=== PATIENT | female | born 1935 | race Caucasian/White ===

== ENCOUNTER 2017-10-16 13:21 | Emergency (ER) | payer MEDICARE ==
[~2017-10-16] VITALS: Ht 162.6 cm; Wt 52.2 kg
[~2017-10-16 13:21] MED LIST: ADVAIR 250-501 EACH INH; ARICEPT ODT5 MG PO; ARICEPT5 MG; ASPIR 8181 MG PO; ATENOLOL100 MG PO; CELEXA40 MG PO; CIPRO500 MG PO; CLONAZEPAM0.5 M1 PO; COLACE100 MG PO; COUMADIN2 MG PO; COUMADIN4 MG PO; CYCLOBENZAPRINE10 MG PO; CYPROHEPTADINE H4 MG PO; DIGOXIN125 MCG PO; DIVALPROEX SOD250 MG PO; FENOFIBRATE160 MG PO; FENTANYL1 EAC1 TD; FLAGYL500 MG PO; GABAPENTIN600 MG PO; IMODIUM2 MG PO; LACTULOSE10 GM/15 M PO; LASIX20 MG PO; LEVOXYL75 MCG PO; LISINOPRIL20 MG PO; LUNESTA2 MG PO; LUNESTA3 MG PO; NEXIUM40 MG PO; NORCO 10-325 T1 EACH PO; NORCO 5-325 TA1 EACH PO; NYSTATIN1 EAC1; OMEPRAZOLE20 MG PO; PAROXETINE HCL40 MG PO; PRAVASTATIN SOD40 MG PO; RESTORIL15 MG PO; TAMBOCOR100 MG PO; TYLENOL EXTRA500 MG PO; ZYRTEC10 M3 PO
[2017-10-16] MEDS ORDERED: SODIUM CHLORIDE FLUSH 10 ML SYR INJ PRN (14:15)
--- NOTE | 2017-10-16 14:56 | Diagnostic Imaging Report ---
Right shoulder - 1 view HISTORY: Pain. COMPARISON: None available. FINDINGS: The examination is limited to a single projection. Bones: Acute dislocation of the right glenohumeral joint. Evaluation for fracture is limited. No expansile lytic or sclerotic lesion. Joints: The joint spaces are well-maintained. No dislocation. Soft tissues: The soft tissues appear unremarkable. IMPRESSION: Right shoulder dislocation. Signed by: Dr. Pavan Calle M.D. on 10/16/2017 2:52 PM
--- NOTE | 2017-10-16 16:02 | Diagnostic Imaging Report ---
Right scapula - 2 views HISTORY: Pain. COMPARISON: None available. FINDINGS: Bones: No acute displaced fracture. No expansile lytic or sclerotic lesion. Joints: The joint spaces are well-maintained. No dislocation. Soft tissues: The soft tissues appear unremarkable. IMPRESSION: No acute radiographic abnormality. Limited examination. Signed by: Dr. Pavan Calle M.D. on 10/16/2017 3:59 PM
[2017-10-16 17:23] LABS: BILIRUBIN,URINE 1+ (NEGATIVE); KETONES,URINE NEGATIVE (NEGATIVE); LEUKOCYTE ESTERASE ,URINE NEGATIVE (NEGATIVE); NITRITE,URINE NEGATIVE (NEGATIVE); PROTEIN,URINE DIPSTICK NEGATIVE (NEGATIVE); URINE UROBILINOGEN 0.2 mg/dL (0.2 - 1)
[2017-10-16 17:23] LABS: BASOPHILS # (AUTO) 0.1 (0.0-0.1); BASOPHILS % 0.4 % (0.0-1.0); EOSINOPHILS # (AUTO) 0.1 (0.0-0.4); EOSINOPHILS % 0.7 % (0.0-6.0); HEMATOCRIT 42.5 % (34.2-44.1); LYMPHOCYTES # (AUTO) 3.4 (1.0-3.2); LYMPHOCYTES % 30.2 % (18.0-39.1); MEAN CORPUSCULAR HGB CONC 32.9 g/dL (31-35); MONOCYTES # (AUTO) 1.2 (0.2-0.8); MONOCYTES % 10.5 % (4.4-11.3); NEUTROPHILS # (AUTO) 6.4 (2.1-6.9); NEUTROPHILS % 56.9 % (38.7-80.0); PLATELET COUNT 278 x10e3/uL (140-360); RED BLOOD COUNT 4.67 x10e6/uL (3.6-5.1); RED CELL DISTRIBUTION WIDTH 17.6 % (11.7-14.4)
[2017-10-16 17:24] LABS: CLARITY,URINE HAZY (CLEAR); COLOR,URINE YELLOW (YELLOW)
[2017-10-16 17:33] LABS: AMORPHOUS SEDIMENT,URINE FEW (FEW); BACTERIA,URINE FEW /HPF; EPITHELIAL CELLS,URINE FEW /LPF; RBC,URINE 0-5 /HPF (0-5); WBC,URINE (MAN) 0-5 /HPF (0-5)
[2017-10-16 17:41] LABS: ALBUMIN 3.2 g/dL (3.5-5.0); ALBUMIN/GLOBULIN RATIO 0.7 (0.8-2.0); ANION GAP 18.8 mmol/L (8-16); CALCIUM 9.1 mg/dL (8.4-10.2); CREATININE, SERUM 1.72 mg/dL (0.57-1.11); POTASSIUM 3.8 mmol/L (3.5-5.1)
[2017-10-16 17:48] LABS: CREATINE KINASE MB 5.2 ng/mL (0.00-5.00); TROPONIN I 0.065 ng/mL (0-0.300)
[2017-10-16] MEDS ORDERED: SODIUM CHLORIDE 0.9% 1000ML 1,000 ML IV SCH (18:30)
== END 2017-10-16 21:00 | disposition home or self-care (01) ==
LOC: ER 13:21
DX: R53.1 Weakness (principal); M25.511 Pain in right shoulder; E86.0 Dehydration; W18.11XD Fall from or off toilet without subsequent striking against object, subsequent encounter; Y92.002 Bathroom of unspecified non-institutional (private) residence as the place of occurrence of the external cause; I10 Essential (primary) hypertension; I25.10 Atherosclerotic heart disease of native coronary artery without angina pectoris; I48.91 Unspecified atrial fibrillation; E03.9 Hypothyroidism, unspecified; K21.9 Gastro-esophageal reflux disease without esophagitis; E78.5 Hyperlipidemia, unspecified; F17.210 Nicotine dependence, cigarettes, uncomplicated
CPT/HCPCS: 36415; 73010; 73030; 80053; 81001; 82550; 82553; 84484; 85025; 87086; 93005; 99284; J7030

== ENCOUNTER 2018-02-02 12:01 | Inpatient (IN) | payer MEDICARE ==
[~2018-02-02] VITALS: Ht 162.6 cm; Wt 44.9 kg
--- OUTSIDE RECORDS SUMMARY | 2018-02-02 12:03 | XMS REPORT ---
Author Author [facility] Address Unknown Phone Unavailable Care Team Providers [employer] Physical Therapist Name Role Phone SABRINA ROJAS Unavailable Unavailable Problems This patient has no known problems. Allergies, Adverse Reactions, Alerts This patient has no known allergies or adverse reactions. Medications This patient has no known medications. Results Test Description Test Time Test Comments Text Results Atomic Results Result Comments SCAPULA RIGHT [place] [address] Patient Name: VALERIA MARK MR #: [id number] : 1935 Age/Sex: 82/F Req #: [id number] Adm Physician: Ordered by: KURTIS BETHEA Report #: [id number] Location: ER Room/Bed: Procedure: [id number] DX/SCAPULA RIGHT Exam Date: 10/16/17 Exam Time : 1540 REPORT STATUS: Signed Right scapula - 2 views HISTORY: Pain. COMPARISON: None available. FINDINGS: Bones: No acute displaced fracture. No expansile lytic or sclerotic lesion. Joints: The joint spaces are well-maintained. No dislocation. Soft tissues: The soft tissues appear unremarkable. IMPRESSION: No acute radiographic abnormality. Limited examination. Signed by: Dr. Bonifacio Burroughs M.D. on 2017 3:59 PM Dictated By: BONIFACIO BURROUGHS MD [id number] Transcribed By: MARTELL on 10/16/17 155 COPY TO: KURTIS BETHEA SHOULDER RIGHT COMPLETE [place] [address] Patient Name: VALERIA MARK MR #: [id number] : 1935 Age/Sex: 82/F Req #: [id number] Adm Physician: Ordered by: KURTIS BETHEA Report #: [id number] Location: ER Room/Bed: _ Procedure: [id number] DX/SHOULDER RIGHT COMPLETE Exam Date: 10/16/17 Exam Time: 1435 REPORT STATUS: Signed Right shoulder - 1 view HISTORY: Pain. COMPARISON: None available. FINDINGS: The examination is limited to a single projection. Bones: Acute dislocation of the right glenohumeral joint. Evaluation for fracture is limited. No expansile lytic or sclerotic lesion. Joints: The joint spaces are well-maintained. No dislocation. Soft tissues: The soft tissues appear unremarkable. IMPRESSION: Right shoulder dislocation. Signed by: Dr. Bonifacio Burroughs M.D. on 10/16/2017 2:52 PM Dictated By: BONIFACIO BURROUGHS MD [id number] Transcribed By: MARTELL on 10/16/17 145 COPY TO: KURTIS BETHEA
[2018-02-02 12:42] LABS: BASOPHILS % 0.5 % (0.0-1.0); EOSINOPHILS # (AUTO) 0.1 (0.0-0.4); EOSINOPHILS % 1.2 % (0.0-6.0); HEMATOCRIT 45.8 % (34.2-44.1); HEMOGLOBIN 15.2 g/dL (12.0-16.0); LYMPHOCYTES # (AUTO) 3.4 (1.0-3.2); LYMPHOCYTES % 41.6 % (18.0-39.1); MEAN CORPUSCULAR HEMOGLOBIN 30.2 pg (28-32); MEAN CORPUSCULAR HGB CONC 33.2 g/dL (31-35); MEAN CORPUSCULAR VOLUME 91.1 fL (81-99); MONOCYTES # (AUTO) 0.6 (0.2-0.8); MONOCYTES % 7.9 % (4.4-11.3); NEUTROPHILS # (AUTO) 3.9 (2.1-6.9); NEUTROPHILS % 48.4 % (38.7-80.0); PLATELET COUNT 237 x10e3/uL (140-360); RED BLOOD COUNT 5.03 x10e6/uL (3.6-5.1); RED CELL DISTRIBUTION WIDTH 17.2 % (11.7-14.4)
--- NOTE | 2018-02-02 13:01 | Diagnostic Imaging Report ---
PROCEDURE:CHEST SINGLE (PORTABLE) TECHNIQUE:Portable AP chest INDICATION:Weakness COMPARISON:None. FINDINGS: Lungs are clear, with scattered interstitial changes suggesting age-related scar. No pleural effusions. Normal heart size for technique and rotation. Grossly intact skeleton. The patient is notably rotated to the left. CONCLUSION: Limited study without acute abnormality. Dictated by: Ten Cartwright M.D. on 02/02/2018 at 13:02 Electronically approved by: Ten Cartwright M.D. on 02/02/2018 at 13:02
--- NOTE | 2018-02-02 13:02 | Diagnostic Imaging Report ---
PROCEDURE:WRIST COMPLETE RIGHT TECHNIQUE:AP, lateral and oblique views right wrist INDICATION:Right wrist pain COMPARISON:None. FINDINGS: The right wrist is intact and in anatomic alignment. There is diffuse mild degenerative change and ligamentous and fibrocartilage calcification. Regional atherosclerosis. CONCLUSION: 1. No acute abnormality. 2. Osteopenia. 3. Degenerative changes and cartilaginous calcification. Correlate for CPPD. Dictated by: Ten Cartwright M.D. on 02/02/2018 at 13:03 Electronically approved by: Ten Cartwright M.D. on 02/02/2018 at 13:03
--- NOTE | 2018-02-02 13:05 | Diagnostic Imaging Report ---
EXAMINATION: Head CT HISTORY: Weakness, lethargic, status post fall the night before COMPARISON: Head CT on 05/03/2015 TECHNIQUE: Multidetector axial images were obtained without contrast from the foramen magnum to the vertex . The images were reconstructed using brain and bone algorithms. Thin section brain images were reformatted into coronal and sagittal planes. Intravenous contrast: None. Motion/streaking artifact limits the evaluation of the skull base and posterior cranial fossa. FINDINGS: Parenchyma: 1. Progression to moderately severe confluent supratentorial white matter chronic O ischemic changes. 2. Unchanged chronic lacunar infarct in the left caudate nucleus , left anterior lentiform nucleus, left posterior putamen, left subfrontal which extends to the head of the caudate nucleus , right inferior coronary radiata, subinsular regions and left thalamus. 3. No mass or hemorrhage. No CT evidence of acute territorial vascular insult. Extra-axial spaces:No abnormal density. No extra-axial fluid collections Brain volume: Generalized brain volume loss with bilateral parietal and medial temporal predominance, which can be seen in patients with Alzheimer's disease. Ventricles: No hydrocephalus or displacement. Arteries: No density suggestive of thrombus. Dural sinuses: No abnormal density. Extra-axial spaces: No abnormal density. Foramen magnum: No mass, Chiari malformation, or basilar invagination. Sella: No obvious mass. Paranasal/mastoid sinuses: Imaged portions unremarkable. Skull/Scalp: No lytic or blastic lesions. No fractures. IMPRESSION: 1. No acute posttraumatic intracranial hemorrhage or cortical infarcts. 2. Progression to moderately severe chronic microvascular ischemic changes when compared to head CT on 05/03/2015. 3. Unchanged multiple chronic lacunar infarcts. 4. Worsening brain volume loss as detailed above. Signed by: Dr. Kristen Grover M.D. on 02/02/2018 1:01 PM
[2018-02-02 13:08] LABS: B-TYPE NATRIURETIC PEPTIDE2 135.9 pg/mL (0-100)
--- NOTE | 2018-02-02 13:37 | Diagnostic Imaging Report ---
EXAMINATION: CT of the cervical spine HISTORY: Weakness, lethargic, status post fall the night before COMPARISON: None available TECHNIQUE: Multidetector helical axial images were obtained without contrast from the foramen magnum to T1. The images were reconstructed using bone and soft tissue algorithms and were viewed in axial, sagittal and coronal planes. FINDINGS: Alignment: Prominent kyphotic deformity centered at C3-C6. Minimal anterolisthesis at C2-C3, C3-C4 and grade 1 anterolisthesis at C4-C5 likely chronic and degenerative in nature. Probable dextroscoliosis. Soft tissues: Normal. Vertebrae: Diffuse osteopenia, otherwise normal height and density. No acute fracture, infection or neoplasm. Chronic endplate degenerative changes from C3 to C7. Degenerative changes: C1-C2: Mild degenerative changes without stenosis. C2-C3: Facet arthroses mainly on the left. Moderate left foraminal stenosis.. C3-C4: Osteophyte complex formation, bilateral uncovertebral and facet arthrosis. Moderate foraminal stenoses on the right and moderately severe on the left.. C4-C5: Disc osteophyte complex formation, bilateral uncovertebral and facet arthrosis. Mild foraminal stenoses. C5-C6: Disc osteophyte complex formation, bilateral uncovertebral and facet arthrosis. Mild right and moderate left foraminal stenoses.. C6-C7: Disc osteophyte formation, bilateral uncovertebral and facet arthrosis. Moderately severe left foraminal stenosis. C7-T1: Facet arthrosis without significant stenoses. IMPRESSION: 1. No acute cervical spine fractures or dislocations. 2. Prominent kyphotic malalignment. 3. Multilevel chronic degenerative changes as detailed above. Note: Acute postraumatic spinal cord, vascular or ligamentous injuries cannot adequately be assessed by CT. Signed by: Dr. Kristen Grover M.D. on 02/02/2018 1:34 PM
[2018-02-02 13:42] LABS: INR 1.04; PROTHROMBIN TIME 12.8 seconds (11.9-14.5)
[2018-02-02 13:43] LABS: PARTIAL THROMBOPLASTIN TIME 26.7 seconds (23.8-35.5)
[2018-02-02 13:53] LABS: ALANINE AMINOTRANSFERASE 15 IU/L (0-55); ALBUMIN 3.5 g/dL (3.5-5.0); ALBUMIN/GLOBULIN RATIO 0.7 (0.8-2.0); ALKALINE PHOSPHATASE 77 IU/L (40-150); ANION GAP 14.2 mmol/L (8-16); BLOOD UREA NITROGEN 33 mg/dL (7-26); BUN/CREATININE RATIO 40 (6-25); CALCIUM 10.2 mg/dL (8.4-10.2); CARBON DIOXIDE 32 mmol/L (22-29); CHLORIDE 102 mmol/L (98-107); CREATINE KINASE 242 IU/L (29-168); CREATININE, SERUM 0.83 mg/dL (0.57-1.11); EST GLOMERULAR FILTRATION RATE > 60 ML/MIN (60-); GLUCOSE 78 mg/dL (74-118); LIPASE 6 U/L (8-78); MAGNESIUM 1.9 MG/DL (1.3-2.1); POTASSIUM 4.2 mmol/L (3.5-5.1); SODIUM 144 mmol/L (136-145)
[2018-02-02 14:14] LABS: THYROID STIMULATING HORMONE 2.746 uIU/mL (0.350-4.940)
[2018-02-02] MEDS ORDERED: DILTIAZEM HCL 5 MG/ML 5 ML VIAL IV ONE (15:33)
[2018-02-02] MEDS ORDERED: ONDANSETRON HCL INJ 2 MG/ML VIAL IV PRN (15:45)
[2018-02-02] MEDS ORDERED: ASPIRIN 81 MG CHEW TAB PO ONE (15:45)
[2018-02-02] MEDS ORDERED: SODIUM CHLORIDE 0.9% 1000ML 1,000 ML ONE (15:54)
[2018-02-02 15:58] LABS: CLARITY,URINE SL CLOUDY (CLEAR); COLOR,URINE YELLOW (YELLOW); LEUKOCYTE ESTERASE ,URINE NEGATIVE (NEGATIVE); NITRITE,URINE NEGATIVE (NEGATIVE); PROTEIN,URINE DIPSTICK NEGATIVE (NEGATIVE)
[2018-02-02 15:59] LABS: BILIRUBIN,URINE NEGATIVE (NEGATIVE); KETONES,URINE 1+ (NEGATIVE); URINE UROBILINOGEN 0.2 mg/dL (0.2 - 1)
[2018-02-02 16:10] LABS: AMORPHOUS SEDIMENT,URINE FEW (FEW); RBC,URINE 0-5 /HPF (0-5); WBC,URINE (MAN) 0-5 /HPF (0-5)
[2018-02-02] MEDS: SODIUM CHLORIDE 0.9% 1000ML 1,000 ML IV SCH (16:10)
[2018-02-02 16:11] LABS: MUCUS,URINE FEW (RARE)
[2018-02-02] MEDS ORDERED: ULTRAM50 MG PO (17:50)
[2018-02-02] MEDS ORDERED: MEGESTROL400 MG/10 PO (17:50)
[2018-02-02] MEDS ORDERED: MUPIROCIN22 GM TOP (17:50)
[2018-02-02] MEDS ORDERED: BREO ELLIPTA 200/25 INH (17:50)
[2018-02-02 19:00] VITALS: BP 127/90
[2018-02-02 20:00] VITALS: BP 131/60
[2018-02-02] MEDS: ENOXAPARIN SOD INJ 60 MG/0.6 ML SYR SC SCH (20:47)
--- NOTE | 2018-02-02 21:42 | Consultation ---
DATE OF CONSULTATION: February 02, 2018 CARDIAC CONSULTATION REASON FOR CONSULTATION: Atrial fibrillation, failure to thrive and multiple medical health problems. Information taken from patient's medical record and reviewing her old records and from retirement records. She cannot give much of information. She does not know why she is here. HISTORY: Apparently, she is an 82-year-old lady who is a poor historian. She lives in a retirement. She does have history of dementia. She is has known longstanding history of hypertension, atrial fibrillation, advanced osteoporosis, severe GERD and reflux, severe osteoarthritis, tremors, advanced peripheral arterial vascular disease, severe low back pain with severe radiculopathy on treatment. Cardiac-napier patient is known also with coronary artery disease. She had myocardial infarction in the early . She does have history of syncope. She does have history of fall. The patient apparently was at retirement when she was having failure to thrive, altered mental status, debility, fall and it is not able to wake her up. She seems to be very ill. She was brought to this institution and found to be in atrial fibrillation. She was given 10 mg of Cardizem intravenously and she converted spontaneously to sinus bradycardia. I visited with the patient and she does not know why she is here. She said she is cold and she needs to be covered. As I can gather from her and from her records, the patient is dependent totally on her care. She cannot do much of activity. There is no chest pain. It seems her condition is deteriorating over the last few days. Today, she was very lethargic, obtunded and she is having possible fever. She came to this institution. REVIEW OF SYSTEMS: Was very difficult to obtain and will be summarized for clarity. GENERAL: Failure to thrive. Fever. CARDIAC AND PULMONARY: As per acute illness, cough, atrial fibrillation noted in the emergency room. GI: Patient does have chronic constipation. : Patient is incontinent and uses diapers. NEUROLOGIC: Since the patient is in bed, she is having feet protectors. She does have chronic changes of the lower extremities. Neurological as per record. She is having tendency to fall. Her activities are very limited. She is totally dependent on her care. PSYCHIATRIC: The patient is quite forgetful and demented. JOINT AND MUSCLES: The patient has severe aches. She is on chronic Fentanyl patch. SOCIAL HISTORY: She is a . She is living in a retirement. She is a nonsmoker and not an alcohol drinker. HOME MEDICATIONS: A long list including, Levothyroxine 75 mcg a day. Pravastatin 40 mg a day. Aspirin 81 mg a day. Atenolol 50 mg a day. Digoxin 0.125 mg a day. Lisinopril 10 mg twice a day. Lasix 20 mg a day. Advair. Zyrtec. Celexa 40 mg a day. Depakote 250 mg twice a day. Fentanyl patch every 72 hours. Aricept 5 mg a day. ALLERGIES: NONE. PAST MEDICAL HISTORY: 1. Hypertension. 2. Paroxysmal atrial fibrillation. 3. Coronary artery disease, status post prior myocardial infarction. 4. Peripheral arterial vascular disease. 5. Osteoporosis. 6. Gastroesophageal reflux disease. 7. Arthritis. 8. Chronic low back pain and radiculopathy on chronic pain treatment. 9. Tremor. 10. Debility and bedridden. 11. Incontinence. 12. Hypothyroidism. FAMILY HISTORY: Unable to get. PHYSICAL EXAMINATION VITALS: Height of 5 feet, 4 inches, weight of 115 pounds. Blood pressure 130/80. Heart rate of 50. Respiratory rate of 18. Afebrile. HEENT: Pupils are reactive. NECK: No elevation of jugular venous pulsation. CHEST: Decreased air entry in bases with coarse crackles. HEART: PMI at 5th left intercostal space with ejection systolic murmur at left sternal border. ABDOMEN: Soft. Bowel sounds are present. There is no organomegaly. Diaper is noted in place. EXTREMITIES: Heel protectors noted bilaterally. Chronic skin changes in both forelegs. NEUROLOGIC: Patient is obtunded, lethargic. She responds to stimuli and then she goes back to sleep. LABORATORY DATA: Sodium 144, potassium 4.2. BUN of 33, creatinine 0.83. White blood cell count of 8.1, hemoglobin 15.2, hematocrit 45, platelet count of 237,000. EKG showing sinus bradycardia, left axis deviation, nonspecific ST changes, anteroseptal myocardial infarction. IMAGING: Chest x-ray by report showed no pulmonary edema. IMPRESSION AND PLAN: 1. Atrial fibrillation seems to be converted to sinus bradycardia, very high probability of sick sinus syndrome. Patient is known to have paroxysmal atrial fibrillation. 2. Advanced coronary artery disease. 3. Peripheral arterial vascular disease. 4. Hypertension. 5. Hypothyroidism. 6. Debility. 7. Tremor. 8. Failure to thrive. Cardiac-napier my recommendation will be as follows. 1. To maintain on telemetry. 2. Digoxin needs to be stopped in this age group because of digoxin toxicity. 3. Observing blood pressure, adjusting medication as needed. 4. Continuation of thyroxine. 5. Anticoagulation will be difficult in this patient because of her repeated falls and her status. Cardiac-napier plan will be for conservative approach from a cardiac point of view because of the patient's comorbid condition and her dementia and her poor quality of life. Will follow patient's progression with you and would like to thank you for your kind referral. Job#: [id number] EMRE
[2018-02-02 21:56] LABS: CREATINE KINASE MB 2.2 ng/mL (0-5.0)
[2018-02-03] VITALS: BP 138/63
[2018-02-03 06:28] LABS: BASOPHILS % 0.5 % (0.0-1.0); EOSINOPHILS # (AUTO) 0.1 (0.0-0.4); EOSINOPHILS % 1.1 % (0.0-6.0); HEMATOCRIT 36.4 % (34.2-44.1); HEMOGLOBIN 11.8 g/dL (12.0-16.0); LYMPHOCYTES # (AUTO) 2.6 (1.0-3.2); LYMPHOCYTES % 40.6 % (18.0-39.1); MEAN CORPUSCULAR HEMOGLOBIN 29.9 pg (28-32); MEAN CORPUSCULAR HGB CONC 32.4 g/dL (31-35); MEAN CORPUSCULAR VOLUME 92.2 fL (81-99); MONOCYTES # (AUTO) 0.8 (0.2-0.8); MONOCYTES % 12.5 % (4.4-11.3); NEUTROPHILS # (AUTO) 2.9 (2.1-6.9); PLATELET COUNT 194 x10e3/uL (140-360); RED BLOOD COUNT 3.95 x10e6/uL (3.6-5.1); RED CELL DISTRIBUTION WIDTH 16.5 % (11.7-14.4)
[2018-02-03 06:44] LABS: INR 1.16; PROTHROMBIN TIME 13.9 seconds (11.9-14.5)
[2018-02-03 06:55] LABS: ALANINE AMINOTRANSFERASE 11 IU/L (0-55); ALBUMIN 2.7 g/dL (3.5-5.0); ALBUMIN/GLOBULIN RATIO 0.7 (0.8-2.0); ALKALINE PHOSPHATASE 60 IU/L (40-150); BLOOD UREA NITROGEN 27 mg/dL (7-26); BUN/CREATININE RATIO 42 (6-25); CALCIUM 9.2 mg/dL (8.4-10.2); CARBON DIOXIDE 29 mmol/L (22-29); CHLORIDE 105 mmol/L (98-107); CHOL/HDL RATIO 4.7 (3.0-3.6); CHOLESTEROL 140 MD/DL (0-199); CREATINE KINASE 107 IU/L (29-168); CREATININE, SERUM 0.64 mg/dL (0.57-1.11); EST GLOMERULAR FILTRATION RATE > 60 ML/MIN (60-); GLUCOSE 62 mg/dL (74-118); HDL CHOLESTEROL 30 MG/DL (40-60); LDL CHOLESTEROL 87 MG/DL (60-130); MAGNESIUM 1.7 MG/DL (1.3-2.1); PHOSPHORUS 3.2 MG/DL (2.3-4.7); SODIUM 143 mmol/L (136-145); TRIGLYCERIDES 114 MG/DL (0-149)
--- NOTE | 2018-02-03 07:05 | Diagnostic Imaging Report ---
EXAMINATION: CHEST SINGLE (PORTABLE) INDICATION: Altered mental status COMPARISON: None FINDINGS: TUBES and LINES: None. LUNGS: Lungs are well inflated. There are bibasilar atelectasis. There is mild prominence of the central pulmonary vasculature, consistent with pulmonary venous congestion. PLEURA: No pleural effusion or pneumothorax. HEART AND MEDIASTINUM: The cardiomediastinal silhouette is unremarkable. There are atherosclerotic calcifications within the aorta. BONES AND SOFT TISSUES: No acute osseous lesion. Soft tissues are unremarkable. UPPER ABDOMEN: No free air under the diaphragm. IMPRESSION: No acute thoracic abnormality. Signed by: Dr. Grady Palma M.D. on 02/03/2018 7:01 AM
[2018-02-03 07:15] LABS: DIGOXIN 1.48 ng/mL (0.8-2.0); THYROID STIMULATING HORMONE 1.516 uIU/mL (0.350-4.940)
[2018-02-03 08:02] VITALS: BP 168/73
[2018-02-03] MEDS: ENOXAPARIN SOD INJ 60 MG/0.6 ML SYR SC SCH (08:49)
[2018-02-03] MEDS ORDERED: ENOXAPARIN SOD INJ 60 MG/0.6 ML SYR SC SCH (09:00)
[2018-02-03] MEDS ORDERED: ATENOLOL 50 MG TAB ONE (10:37)
[2018-02-03] MEDS ORDERED: LISINOPRIL 20 MG TAB ONE (10:38)
[2018-02-03] MEDS ORDERED: ASPIRIN 81 MG ENTERIC COATED PO ONE (10:38)
[2018-02-03] MEDS: LISINOPRIL 10 MG TAB PO SCH (10:42)
[2018-02-03] MEDS: ASPIRIN 81 MG ENTERIC COATED PO SCH (10:42)
[2018-02-03] MEDS: SODIUM CHLORIDE 0.9% 1000ML 1,000 ML IV SCH (10:42)
[2018-02-03] MEDS: ATENOLOL 50 MG TAB PO SCH (10:42)
[2018-02-03] MEDS ORDERED: ONDANSETRON HCL 4 MG ORAL DISINTEGRATING TAB PO PRN (14:45)
[2018-02-03] MEDS: ENOXAPARIN SOD INJ 40 MG/0.4 ML SYR SC SCH (15:39)
[2018-02-03 15:45] VITALS: BP 138/79
[2018-02-03 19:10] VITALS: BP 167/74
[2018-02-03 19:39] VITALS: BP 161/74
[2018-02-03] MEDS: PRAVASTATIN 20 MG TAB PO SCH (20:05)
[2018-02-04] VITALS (7 sets, daily range): BP systolic 130–209; BP diastolic 67–105
[2018-02-04] MEDS: LEVOTHYROXINE SODIUM 75 MCG TAB PO SCH (05:30)
[2018-02-04] MEDS: LISINOPRIL 10 MG TAB PO SCH (05:30)
[2018-02-04] MEDS: SODIUM CHLORIDE 0.9% 1000ML 1,000 ML IV SCH (06:23)
[2018-02-04] MEDS: ASPIRIN 81 MG ENTERIC COATED PO SCH (08:49)
[2018-02-04] MEDS: ATENOLOL 50 MG TAB PO SCH (08:49)
[2018-02-04] MEDS ORDERED: HALOPERIDOL LACTATE 5 MG/ML VIAL IM PRN (17:15)
[2018-02-04] MEDS ORDERED: LORAZEPAM INJ 2 MG/ML VIAL IM PRN (17:15)
[2018-02-04] MEDS ORDERED: RISPERIDONE 0.5 MG TAB PO PRN (17:15)
[2018-02-04] MEDS: ENOXAPARIN SOD INJ 40 MG/0.4 ML SYR SC SCH (18:00)
--- NOTE | 2018-02-04 18:43 | Consultation ---
DATE OF CONSULTATION: February 04, 2018 REASON FOR CONSULTATION: To evaluate the patient's poor appetite and mood. HISTORY OF PRESENTING ILLNESS: The patient is an 82-year-old female admitted to the hospital for atrial fibrillation with generalized weakness. Psychiatric consultation is called to evaluate the patient's mood and poor appetite. As per medical record, the patient lives in a halfway. She has history of dementia, hypertension, atrial fibrillation, GERD, osteoarthritis, tremor, peripheral vascular disease, low back pain. Upon evaluation today, the patient is found to be lying on the bed. She is alert, awake and oriented to situation. She does not know the reason for her hospitalization, but able to answer questions appropriately. The patient claimed that at home she had very good appetite, but has not been eating here in the hospital due to the fact that she does not like the food here. She denies any depression or anxiety. She denies feeling helpless or hopeless. She denies any hallucinations. She denies any suicidal ideation. She denies having problems with sleep. She does not need any p.r.n. medication. PAST PSYCHIATRIC HISTORY: The patient denies any past psychiatric history. She denies past suicide attempts. She denies alcohol and drug use. FAMILY HISTORY: The patient denies any family history of psychiatric illness. SOCIAL HISTORY: The patient states that she lives with her roommate in halfway. MENTAL STATUS EXAM: The patient is an elderly female. She is alert, awake and oriented to situation. Her mood is anxious. She denies any suicidal or homicidal ideation. She denies any hallucinations. Thought process is concrete. She does not elicit any paranoia or delusional thinking. Insight is limited to fair. Memory appears to be concrete. MEDICATIONS: 1. Atenolol. 2. Aspirin. 3. Sodium chloride. 4. Lisinopril. 5. Levothyroxine. 6. Enoxaparin. 7. Hydralazine. LABORATORY DATA: WBC 6.41, RBCs 3.95, hemoglobin 11.8, hematocrit 36.41, platelets 194,000. Sodium 143, potassium 4.0, chloride 105, CO2 of 29, BUN 27, creatinine 0.64. ASSESSMENT: Unspecified dementia with behavioral disturbances. PLAN: 1. Add Remeron 7.5 mg p.o. nightly. 2. Consider adding Namenda at a later time. 3. Discussed with staff members and medication will be adjusted as needed. 4. Physical therapy. Thank you for this consultation. Dictated by: KAEL Garsia Job#: [id number] GH
[2018-02-04] MEDS: PRAVASTATIN 20 MG TAB PO SCH (20:57)
[2018-02-04] MEDS ORDERED: MIRTAZAPINE 15 MG TAB PO SCH (21:00)
[2018-02-04] MEDS ORDERED: COLLAGENASE OINTMENT 30 GM TUBE TP SCH (21:00)
[2018-02-05] VITALS: BP 179/82
[2018-02-05] MEDS: HYDRALAZINE HCL 25 MG TAB PO PRN ×2 (00:46→06:06)
[2018-02-05] MEDS: SODIUM CHLORIDE 0.9% 1000ML 1,000 ML IV SCH (02:20)
[2018-02-05 04:00] VITALS: BP 165/91
[2018-02-05] MEDS: LEVOTHYROXINE SODIUM 75 MCG TAB PO SCH (06:00)
[2018-02-05 07:37] VITALS: BP 207/95
[2018-02-05 08:30] VITALS: BP 169/75
[2018-02-05] MEDS: ATENOLOL 50 MG TAB PO SCH (08:41)
[2018-02-05] MEDS: ASPIRIN 81 MG ENTERIC COATED PO SCH (08:41)
[2018-02-05] MEDS ORDERED: MEGACE 400MG/ 10ML CUP PO SCH (09:00)
[2018-02-05] MEDS ORDERED: COLLAGENASE OINTMENT 30 GM TUBE TP SCH (09:00)
[2018-02-05] MEDS: LISINOPRIL 10 MG TAB PO SCH (12:00)
== END 2018-02-05 15:35 | DRG 309 ==
LOC: ER 12:01 → ERHOLD 15:54 → MED/SURG 18:17
DX: I49.5 Sick sinus syndrome (principal); Z68.1 Body mass index [BMI] 19.9 or less, adult; F03.91 Unspecified dementia, unspecified severity, with behavioral disturbance; E44.0 Moderate protein-calorie malnutrition; I48.0 Paroxysmal atrial fibrillation; R62.7 Adult failure to thrive; K21.9 Gastro-esophageal reflux disease without esophagitis; R25.1 Tremor, unspecified; I73.9 Peripheral vascular disease, unspecified; M54.10 Radiculopathy, site unspecified; M54.5 Low back pain; I25.10 Atherosclerotic heart disease of native coronary artery without angina pectoris; I25.2 Old myocardial infarction; M81.0 Age-related osteoporosis without current pathological fracture; Z74.01 Bed confinement status; R32 Unspecified urinary incontinence; E03.9 Hypothyroidism, unspecified; Z79.52 Long term (current) use of systemic steroids; E78.5 Hyperlipidemia, unspecified; G89.4 Chronic pain syndrome; L89.152 Pressure ulcer of sacral region, stage 2
CPT/HCPCS: 36415; 51700; 70450; 71045; 72125; 80053; 80061; 80162; 81001; 82270; 82550; 82553; 82948; 83605; 83690; 83735; 83880; 84100; 84443; 84484; 85025; 85610; 85730; 87040; 87086; 87400; 93005; 93306; 96361; 97139; 99284; J1650; J7030